=== PATIENT | male | born 1935 | race African-American/Black ===

== ENCOUNTER → 2016-08-19 14:05 | Emergency (ER) | payer MEDICARE | END | disposition home or self-care (01) | LOC: CFTX 14:05 | DX: R09.81 Nasal congestion (principal); E11.65 Type 2 diabetes mellitus with hyperglycemia; I10 Essential (primary) hypertension; Z88.1 Allergy status to other antibiotic agents | CPT/HCPCS: 99282 ==

== ENCOUNTER 2016-09-27 08:15 | Emergency (ER) | payer MEDICARE | END 2016-09-27 09:37 | disposition home or self-care (01) | LOC: CED 08:15 | DX: J33.9 Nasal polyp, unspecified (principal); F41.9 Anxiety disorder, unspecified; R13.10 Dysphagia, unspecified; E11.9 Type 2 diabetes mellitus without complications; I10 Essential (primary) hypertension; Z79.899 Other long term (current) drug therapy | CPT/HCPCS: 99282 ==

== ENCOUNTER 2016-10-05 10:20 | Emergency (ER) | payer MEDICARE ==
--- NOTE | ~2016-10-05 | CR72 ---
[facility] A Service of [facility] & [facility] RADIOLOGY TEXT RESULTS PATIENT: CASS EARL JR LOCATION: [facility] : 35 UNIT #: [id number] AGE: [address]: Marshal Caraballo DO SEX: M ORDER DR: [id number] [facility] [address] [place], [place] [address] [id number] E MR#: [id number] Acc #: [id number] NAME: CASS EARL JR : 1935 SEX: M STUDY DATE/TIME: 10/05/2016 16:27 UNIT: [facility] ROOM: STUDY DESCRIPTION: CR Chest Single View Portable Attending Physician: Marshal Caraballo D.O. Ordering Physician: Marshal Caraballo D.O. Primary Care Physician: Tuan Saucedo M.D. MEDICAL IMAGING REPORT This report is preliminary unless electronic signature is present EXAM Single view of the chest, dated 10/05/16. COMPARISON Single view of the chest, dated 09/11/13. HISTORY Three months ago, patient had swelling in the face and neck region with congestion and lung mass. FINDINGS Single view of the chest was obtained. Lungs appear to be relatively well-aerated. There is a history of lung mass, but it is difficult to visualize on the current modality and study. It does not appear to have significantly worsened when compared to the prior chest x-ray from 09/11/13. Heart is of normal size. Endplate osteophytes are noted in the thoracic spine. Dictated by... Pamela Jimenez M.D. THIS IS AN ELECTRONICALLY VERIFIED REPORT Pamela Jimenez M.D. at 10/07/2016 5:09 PM CPR/jt TD: 10/05/2016 23:41 JOB #: [id number] MEDICAL IMAGING REPORT Page 1 of 1 COPY
--- NOTE | ~2016-10-05 | CT114 ---
[facility] A Service of [facility] RADIOLOGY TEXT RESULTS PATIENT: CASS EARL JR LOCATION: [facility] : 35 UNIT #: [id number] AGE: [address]: Marshal Caraballo DO SEX: M ORDER DR: [id number] [facility] [address] [place], [place] [address] [id number] E MR#: [id number] Acc #: [id number] NAME: CASS EARL JR : 1935 SEX: M STUDY DATE/TIME: 10/05/2016 14:30 UNIT: [facility] ROOM: STUDY DESCRIPTION: CT Soft Tissue Neck W Cont Attending Physician: Marshal Caraballo D.O. Ordering Physician: Marshal Caraballo D.O. Primary Care Physician: Tuan Saucedo M.D. MEDICAL IMAGING REPORT This report is preliminary unless electronic signature is present EXAM Soft tissue neck CT with contrast. DATE OF STUDY 10/05/16 PROCEDURE Axial contrast enhanced soft tissue neck CT with multiplanar reformats. This CT exam was performed with one or more of the following radiation dose reduction techniques: automatic exposure control, adjustment of mA and/or kV according to patient size, and iterative reconstruction. COMPARISON Cervical spine CT images from 09/11/13. CLINICAL HISTORY Bilateral neck pain and swelling radiating to face with difficulty swallowing since September 14. FINDINGS The base of the brain is normal. There is no cervical soft tissue mass, adenopathy, inflammatory change or abnormal fluid collection. There are atherosclerotic vascular calcifications at the cervical, carotid bifurcations, but the study is not optimized for evaluation for stenosis and no estimation can be made by NASCET criteria. There are spinal degenerative changes, but no acute bony abnormality is seen. The patient is edentulous. Images of the upper lungs demonstrate a lesion in the medial left upper lobe. It abuts the upper mediastinum and measures at least 2.4 x 0.9 cm. There is spiculated-appearing retraction of the adjacent lung. The lesion may measure up to 13 mm in craniocaudal dimension. There is no prior [facility] A Service of [facility] & [facility] RADIOLOGY TEXT RESULTS PATIENT: CASS EARL JR LOCATION: [facility] : 35 UNIT #: [id number] AGE: [address]: Marshal Caraballo DO SEX: M ORDER DR: imaging of the chest, but the lesion is worrisome based on what is seen here and suggest the possibility of a bronchogenic carcinoma. Recommend follow-up chest CT, preferable with contrast for more complete evaluation. IMPRESSION No cervical mass, or inflammatory change or cervical adenopathy. Spinal degenerative change but no acute abnormality in the neck. Question etiology of a lesion in the left upper lobe of the lung abutting the mediastinum. It measures about 9 x 13 x 23 mm here and is worrisome for a medial left upper lobe bronchogenic carcinoma. Recommend follow up contrast enhanced chest CT for a more complete evaluation. Dictated by... Agustín Nolan M.D. THIS IS AN ELECTRONICALLY VERIFIED REPORT Agustín Nolan M.D. at 10/05/2016 10:46 PM PETRONA/jazmine TD: 10/05/2016 21:02 JOB #: [id number] MEDICAL IMAGING REPORT Page 1 of 1 COPY
[2016-10-05 12:43] LABS: BASOPHIL% 0.5 % (0-2.5); EOSINOPHIL% 0.6 % (0.0-7.0); HEMATOCRIT 42.3 % (38.0-50.0); HEMOGLOBIN 13.7 gm/dL (13.0-16.0); LYMPHOCYTE# 1.3 X10e3 (1.0-3.5); LYMPHOCYTE% 16.7 % (17.0-45.0); MEAN CELL VOLUME 94.3 FL (83-96); MEAN CORPUSCULAR HEMOGLOBIN 30.6 PG (28-34); MEAN CORPUSCULAR HGB CONC 32.5 g/dL (30-36); MEAN PLATELET VOLUME 8.7 FL (6.5-11.5); MONOCYTE# 0.8 X10e3 (0-1.0); MONOCYTE% 10.4 % (3.0-12.0); NEUTROPHIL# 5.4 X10e3 (1.5-7.1); NEUTROPHIL% 71.8 % (40-75); PLATELET COUNT 255 X10e3 (140-420); RED BLOOD COUNT 4.48 X10e (3.90-5.60); RED CELL DISTRIBUTION WIDTH 12.8 % (11.0-15.5); WHITE BLOOD COUNT 7.5 X10e3 (4.0-10.5)
[2016-10-05 12:44] LABS: DIFF IND NO
[2016-10-05 13:25] LABS: BUN/CREATININE RATIO 13.33; CALCIUM SERUM 9.2 mg/dL (8.4-10.2); CREATININE SERUM 0.6 mg/dL (0.6-1.4); GLOM FILT RATE Estimated 109.3 mL/min (>60); POTASSIUM 3.5 mmol/L (3.5-5.1)
== END 2016-10-05 18:00 | disposition home or self-care (01) ==
LOC: CED 10:20
PROVIDERS: Emergency Medicine
DX: R09.81 Nasal congestion (principal); E78.5 Hyperlipidemia, unspecified; I10 Essential (primary) hypertension; F41.9 Anxiety disorder, unspecified; Z88.0 Allergy status to penicillin
CPT/HCPCS: 36415; 70491; 71010; 80048; 85025; 87651; 99284; Q9967

== ENCOUNTER → 2016-10-11 | Outpatient (CLI) | payer MEDICARE ==
--- NOTE | ~2016-10-11 | CT55 ---
[facility] A Service of [facility] RADIOLOGY TEXT RESULTS PATIENT: CASS EARL JR LOCATION: [facility] #: [id number] : 35 UNIT #: [id number] AGE: [address]: Edgar Harris MD SEX: M ORDER DR: [id number] [place] [id number] [facility] [place], [place] [address] [id number] O MR#: [id number] [facility] #: [id number] NAME: CASS EARL : 1935 SEX: M STUDY DATE/TIME: 10/11/2016 11:11 UNIT: [facility] ROOM: STUDY DESCRIPTION: CT Chest W Con Attending Physician: Edgar Harris M.D. Referring Physician: Edgar Harris M.D. Ordering Physician: Edgar Harris M.D. Primary Care Physician: Taun Saucedo M.D. MEDICAL IMAGING REPORT This report is preliminary unless electronic signature is present EXAM CT chest with contrast INDICATIONS Abnormal finding, diagnostic imaging of the chest. Abnormal left upper lobe mass on previous portable chest and seen on a CT of the neck from 10/05/2016. PROCEDURE Contrast-enhanced CT of the chest. This CT exam was performed with one or more of the following radiation dose reduction techniques: automatic exposure control, adjustment of mA and/or kV according to patient size, and iterative reconstruction. COMPARISON Neck CT from 10/05/2016. FINDINGS Spiculated mass, medial left upper lobe abutting the mediastinum, measures 2.9 cm. Otherwise, the lungs are clear. No adenopathy. No acute findings in the included upper abdomen. No aggressive- appearing bone lesion. IMPRESSION 1. 2.9-cm spiculated mass in the medial left upper lobe abutting the mediastinum. Suspicious for lung cancer. Recommend evaluation with PET/CT or comparison with any available prior imaging. 2. No evidence for metastatic disease in the chest. Dictated by... Brennan Osuna M.D. [facility] A Service of [facility] RADIOLOGY TEXT RESULTS PATIENT: CASS EARL JR [id number] : 35 UNIT #: [id number] AGE: [address]: Edgar Harris MD SEX: M ORDER DR: THIS IS AN ELECTRONICALLY VERIFIED REPORT Brennan Osuna M.D. at 10/15/2016 7:07 AM [place] TD: 10/14/2016 11:16 JOB #: [id number] MEDICAL IMAGING REPORT Page 1 of 1 COPY
== END | disposition home or self-care (01) ==
LOC: CCAT 10:41
DX: R91.8 Other nonspecific abnormal finding of lung field (principal)
CPT/HCPCS: 71260; Q9967

== ENCOUNTER → 2016-10-31 | Outpatient (CLI) | payer MEDICARE ==
--- NOTE | ~2016-10-31 | MR148 ---
[facility] A Service of [facility] RADIOLOGY TEXT RESULTS PATIENT: CASS EARL JR LOCATION: [facility] : 35 UNIT #: [id number] AGE: [address]: Edgar Harris MD SEX: M ORDER DR: [id number] [facility] [address] [place], [place] [address] [id number] O MR#: [id number] Acc #: [id number] NAME: CASS EARL : 1935 SEX: M STUDY DATE/TIME: 10/31/2016 7:20 UNIT: [facility] ROOM: STUDY DESCRIPTION: MR Orbit Face and or Neck WWo Attending Physician: Edgar Harris M.D. Referring Physician: Edgar Harris M.D. Ordering Physician: Edgar Harris M.D. Primary Care Physician: Tuan Saucedo M.D. [facility] CENTER REPORT This report is preliminary unless electronic signature is present. EXAM Soft tissue neck MRI, with and without contrast, 10/31/2016. PROCEDURE Routine soft tissue neck MRI with and without contrast. COMPARISON PET/CT, 10/21/2016. CLINICAL HISTORY History of lung mass with neck swelling and difficulty swallowing. FINDINGS There is no suspicious mass or adenopathy. Vascular structures appear grossly unremarkable. Postcontrast images show no evidence of abnormal enhancement. IMPRESSION Negative unremarkable soft tissue neck MRI, with the exception of cervical spine degenerative change. Dictated by... Agustín Nolan M.D. THIS IS AN ELECTRONICALLY VERIFIED REPORT Agustín Nolan M.D. at 11/06/2016 10:35 AM PETRONA/gabriela TD: 10/31/2016 15:06 JOB #: [id number] [facility] A Service [facility] RADIOLOGY TEXT RESULTS PATIENT: CASS EARL JR LOCATION: [facility] : 35 UNIT #: [id number] AGE: [address]: Edgar Harris MD SEX: M ORDER DR: MRI CENTER REPORT Page 1 of 1 COPY
== END | disposition home or self-care (01) ==
LOC: CRAD 06:39
DX: R91.1 Solitary pulmonary nodule (principal)
CPT/HCPCS: 70543; 74230; 92611; A9577; G8996-GN; G8997-GN; G8998-GN

== ENCOUNTER → 2017-01-14 | Outpatient (CLI) | payer MEDICARE ==
--- NOTE | ~2017-01-14 | CT55 ---
[facility] A Service of [facility] & [facility] RADIOLOGY TEXT RESULTS PATIENT: CASS EARL JR [facility] UNIT #: [id number] AGE: [address]: Edgar Harris MD SEX: M ORDER DR: [id number] [facility] [address] [place], [place] [address] [id number] O MR#: [id number] [facility] #: [id number] NAME: CASS EARL : 1935 SEX: M STUDY DATE/TIME: 01/14/2017 10:51 UNIT: [facility] ROOM: STUDY DESCRIPTION: CT Chest W Con Attending Physician: Edgar Harris M.D. Referring Physician: Edgar Harris M.D. Ordering Physician: Edgar Harris M.D. Primary Care Physician: Tuan Saucedo M.D. MEDICAL IMAGING REPORT This report is preliminary unless electronic signature is present EXAM CT chest with contrast INDICATIONS Followup pulmonary nodule. TECHNIQUE CT of the chest was performed following the administration of IV contrast. Coronal and sagittal reformatted images were obtained. This CT exam was performed with one or more of the following radiation dose reduction techniques: automatic control, adjustment of mA and/or kV according to patient size, and iterative reconstruction. Comparison is made with PET/CT from 10/21/2016. Also compared with chest CT from 10/14/2016. FINDINGS Stable 2.9 cm spiculated density within the medial left upper lobe adjacent to the border of the main pulmonary artery. Emphysema. Stable scarring in the medial right lung base. No pleural effusion. No lymphadenopathy. Coronary artery calcification. Limited imaging in the upper abdomen shows multiple stable cysts within the liver. Bone windows showed degenerative changes of the thoracic spine. IMPRESSION Stable spiculated density medial left upper lobe adjacent to the pulmonary artery measuring about 2.9 cm. Dictated by... Tyler Patrick M.D. THIS IS AN ELECTRONICALLY VERIFIED REPORT Tyler Patrick M.D. at 01/15/2017 8:00 AM ARS/rnr STS. [facility] A Service of [facility] & [facility] RADIOLOGY TEXT RESULTS PATIENT: CASS EARL JR LOCATION: [facility] : 35 UNIT #: [id number] AGE: [address]: Edgar Harris MD SEX: M ORDER DR: TD: 01/14/2017 18:55 JOB #: [id number] MEDICAL IMAGING REPORT Page 1 of 1 COPY
[2017-01-14 12:11] LABS: POC - CREATININE 0.72 mg/dL (0.64-1.27); POC - GFR >60.0 mL/min (>60)
== END | disposition home or self-care (01) ==
LOC: CCAT 09:54
PROVIDERS: Internal Medicine Medical Oncology
DX: R91.8 Other nonspecific abnormal finding of lung field (principal)
CPT/HCPCS: 71260; 82565; Q9967